=== PATIENT | male | born 1995 | race American Indian/Alaskan Native ===

== ENCOUNTER 2020-11-27 22:56 | Emergency (ER) | payer SELFPAY ==
[2020-11-27 23:42] VITALS: BP 124/84
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
== END 2020-11-28 00:26 | disposition home or self-care (01) ==
LOC: ED 22:56
DX: M62.830 Muscle spasm of back (principal); M54.50 Low back pain, unspecified; V89.2XXA Person injured in unspecified motor-vehicle accident, traffic, initial encounter; Y93.89 Activity, other specified; Y92.488 Other paved roadways as the place of occurrence of the external cause; Y99.8 Other external cause status
CPT/HCPCS: 99282